=== PATIENT | female | born 1950 | race Caucasian/White ===

== ENCOUNTER 2016-08-23 23:01 | Inpatient (IN) | payer MEDICARE, MEDICAID ==
[~2016-08-23] VITALS: Ht 165.1 cm; Wt 120.2 kg
[~2016-08-23 23:01] MED LIST: CIPR500T PO; CRESTOR40 MG PO; HYDR-971 PO; LEVO150T PO; LISI10TA2 PO; METO25TA9 PO; METR500T PO; PROM25TA10 PO; SUCR1TAB35 PO; TICA90TA PO
[2016-08-24] VITALS (9 sets, daily range): BP systolic 103–164; BP diastolic 54–78
[2016-08-24] MEDS ORDERED: NITROGLYCERIN SUBLINGUAL 0.4 MG BOTTLE OF 25. SL PRN (03:45)
[2016-08-24] MEDS ORDERED: ESCITALOPRAM OX10 MG (03:54)
[2016-08-24] MEDS ORDERED: ASPI-482 PO (03:54)
[2016-08-24] MEDS ORDERED: ROSU40TA21 (03:54)
[2016-08-24] MEDS ORDERED: CLOP75TA (03:54)
[2016-08-24] MEDS ORDERED: TRAM50TA (03:54)
[2016-08-24] MEDS ORDERED: LEVO150T5 (03:54)
[2016-08-24] MEDS ORDERED: LISI1TAB7 (03:54)
[2016-08-24] MEDS ORDERED: METO25TA9 (03:54)
[2016-08-24] MEDS ORDERED: ONDANSETRON PF 4 MG/2 ML VIAL. IV PRN ×2 (04:00→11:15)
[2016-08-24] MEDS ORDERED: MORPHINE SULFATE 2 MG/ML DISP.SYRIN. IV PRN ×2 (04:00→11:15)
[2016-08-24] MEDS: IV NORMAL SALINE 1000ML BAG 1,000 ML IV SCH ×2 (04:12→17:20)
[2016-08-24 06:11] LABS: BASO # 0.1 x10^3/uL (0.0-0.2); BASO % 1 % (0-3); EOS % 2 % (0-3); HEMATOCRIT 36.6 % (36.0-47.0); HEMOGLOBIN 12.7 g/dL (12.0-15.5); LYMPH # 3.6 x10^3/uL (1.0-4.8); LYMPH % 28 % (24-48); MEAN CORPUSCULAR HEMOGLOBIN 33 pg (25-35); MEAN CORPUSCULAR HGB CONC 35 g/dL (31-37); MEAN CORPUSCULAR VOLUME 94 fL (79-100); MONO % 5 % (0-9); NEUT % 64 % (31-73); PLATELET COUNT 285 x10^3/uL (140-400); RED CELL DISTRIBUTION WIDTH 16.8 % (11.5-14.5); WHITE BLOOD COUNT 12.6 x10^3/uL (4.0-11.0)
[2016-08-24 06:13] LABS: CREATININE 1.2 mg/dL (0.6-1.0); GFR 45.2; POTASSIUM 3.9 mmol/L (3.5-5.1)
[2016-08-24 09:59] LABS: ALBUMIN 3.4 g/dL (3.4-5.0); ALBUMIN/GLOBULIN RATIO 1.1 (1.0-1.7); CALCIUM 7.5 mg/dL (8.5-10.1); CREATININE 1.3 mg/dL (0.6-1.0); GFR 41.2; POTASSIUM 3.7 mmol/L (3.5-5.1); TOTAL BILIRUBIN 0.3 mg/dL (0.2-1.0); TOTAL PROTEIN 6.6 g/dL (6.4-8.2)
[2016-08-24 10:00] LABS: CHOLESTEROL/HDL RATIO 6.9
--- NOTE | 2016-08-24 10:03 | PDOC2 ---
CARDIAC CONSULT DATE OF CONSULT Date of Consult DATE: 08/24/16 TIME: 09:58 REASON FOR CONSULT Reason for Consult: Chest pain REFERRING PHYSICIAN Referring Physician: Osman SOURCE Source: Chart review, Patient HISTORY OF PRESENT ILLNESS HISTORY OF PRESENT ILLNESS This is a pleasant 65 yo female admitted for complains of dizziness, and chest pain. She is followed by cardiology and last seen about a yr ago. She initially was at [facility] and was complaining of dizziness and chest pain. For further treatments she was then transferred to [facility] . Reports that she saw her PCP the other day to straighten out her refills. She has been taking her ASA daily and inhalers but has not been taking any of her routine medications for 2 months. Her BP was first noted as outpt to be very high and was given BP meds. Her zestoretic and metoprolol was restarted and has been taking it in the last few days and upon ED admission she was noted with low BP and HR. She described her chest pain as tightness associated with dizziness and with mild SOA but no nausea or vomiting. Her CP was consistent but got better and presently absent. Positive for mild abdominal and back discomfort and also right shoulder discomfort (not unusual for her). Denies any diarrhea, passing out, falls or any recent injury. No prior episodes of MVA or recent long distance travel. PAST MEDICAL HISTORY Cardiovascular: CAD, HTN, Hyperlipidemia Pulmonary: COPD CENTRAL NERVOUS SYSTEM: Other (No pertinent history) GI: Diverticulosis, GERD, Other (colitis) Heme/Onc: Cancer Hepatobiliary: Cholelithiasis Psych: No pertinent hx Musculoskeletal: Osteoarthritis Infectious disease: No pertinent hx ENT: No pertinent hx Renal/: No pertinent hx Endocrine: Hypothyroidism Dermatology: No pertinent hx PAST SURGICAL HISTORY Past Surgical History: , Hernia Repair, Hysterectomy (partial), Other (PCI/MADELIN, thyroidectomy) FAMILY HISTORY Family History: Coronary Artery Disease (ather), Diabetes (mother) SOCIAL HISTORY Smoke: No (>40 PK YR QUIT 6 MONTHS AGO) ALCOHOL: none Drugs: None Lives: with Family CURRENT MEDICATIONS CURRENT MEDICATIONS Current Medications Medications (Trade) Dose Ordered Sig/Carolann Route PRN Reason Start Time Stop Time Status Last Admin Dose Admin Ondansetron HCl (Zofran) 4 mg PRN Q6HRS PRN IV NAUSEA/VOMITING 08/24/16 04:00 08/24/16 04:12 Sodium Chloride 1,000 ml @ 75 mls/hr [id number] IV 08/24/16 04:00 08/24/16 04:12 ALLERGIES ALLERGIES: Coded Allergies: No Known Drug Allergies (Unverified , 11/06/14) ROS Review of System 14 point ROS evaluated with pertinent positives noted per HPI PHYSICAL EXAM General: Alert, Oriented X3, Cooperative, No acute distress HEENT: Atraumatic, Mucous membr. moist/pink Lungs: Other (basilar crackles) Heart: Regular rate, Normal S1, Normal S2, Other (2/6 systolic murmur to LLS border) Abdomen: Soft, No tenderness Extremities: No cyanosis, Other (1+ bilateral LE pitting edema) Skin: No breakdown, No significant lesion Neuro: Normal speech, Sensation intact Psych/Mental Status: Mental status NL, Mood NL MUSCULOSKELETAL: Osteoarthritic changes both hands VITALS VITALS Vital Signs Date Time Temp Pulse Resp B/P (MAP) Pulse Ox O2 Delivery O2 Flow Rate FiO2 08/24/16 08:00 Room Air 08/24/16 06:00 46 10 110/57 (74) 95 08/24/16 04:45 98.7 98.7 LABS Lab: Laboratory Tests Test 08/24/16 05:30 White Blood Count 12.6 x10^3/uL (4.0-11.0) Red Blood Count 3.90 x10^6/uL (3.50-5.40) Hemoglobin 12.7 g/dL (12.0-15.5) Hematocrit 36.6 % (36.0-47.0) Mean Corpuscular Volume 94 fL (79-100) Mean Corpuscular Hemoglobin 33 pg (25-35) Mean Corpuscular Hemoglobin Concent 35 g/dL (31-37) Red Cell Distribution Width 16.8 % (11.5-14.5) Platelet Count 285 x10^3/uL (140-400) Neutrophils (%) (Auto) 64 % (31-73) Lymphocytes (%) (Auto) 28 % (24-48) Monocytes (%) (Auto) 5 % (0-9) Eosinophils (%) (Auto) 2 % (0-3) Basophils (%) (Auto) 1 % (0-3) Neutrophils # (Auto) 8.0 x10^3uL (1.8-7.7) Lymphocytes # (Auto) 3.6 x10^3/uL (1.0-4.8) Monocytes # (Auto) 0.6 x10^3/uL (0.0-1.1) Eosinophils # (Auto) 0.2 x10^3/uL (0.0-0.7) Basophils # (Auto) 0.1 x10^3/uL (0.0-0.2) Sodium Level 141 mmol/L (136-145) Potassium Level 3.9 mmol/L (3.5-5.1) Chloride Level 108 mmol/L (98-107) Carbon Dioxide Level 19 mmol/L (21-32) Anion Gap 14 (6-14) Blood Urea Nitrogen 31 mg/dL (7-20) Creatinine 1.2 mg/dL (0.6-1.0) Estimated GFR (Cockcroft-Gault) 45.2 Glucose Level 87 mg/dL (70-99) Calcium Level 8.0 mg/dL (8.5-10.1) Troponin I Quantitative < 0.017 ng/mL (0.000-0.055) HEART CATH HEART CATH Conclusion 1. Unstable angina with significant coronary disease. 2. Normal left ventricular filling pressure. 3. Two vessel coronary artery disease (RCA, Lcx) 4. Successful PTCA and PCI of the ostial RCA with implantation of Resolute 2.75/ 12 MADELIN(post-dilated proximally to a 3.1 mm vessel) 5. Negative FFR of the Lcx stenosis 0.90 (less than 0.80 considered significant) Recommendations Smoking Cessation Cardiac Rehabilitation Referral Aggressive Medical Therapy ASA 81mg daily indefinitely Ticagrelor 90mg bid for at least 30 days, then may transition to Plavix for 1 full year. Routine skin check in two weeks in clinic. Follow up in clinic in 4 weeks. DATE: 11/08/14 7085 ASSESSMENT/PLAN ASSESSMENT/PLAN 1. Presyncope: multifactorial with inadequate hydration, bradycardia, hypothyroidism and hypotension 2. Hypotension/SB with recent start of metoprolol and zestoretic with underlying uncontrolled hypothyroidism. BP now better. 3. Chest pain: Troponin series normal. Could be associated to above. Doubt ACS. EKG SB 40s with RBBB (not new). Pt also with cholelithiasis. 4. Elevated DDIMER: >19. Hx of CA. V/Q scan pending 5. CAD: 10/2014 PCI/MADELIN to RCA. 6. HTN 7. HLP: not on goal 8. UTI 9. BRENT: prerenal 10. Noncompliance: off her meds except for inhalers and ASA for 2 months Recommendations 1. Hold any BB/ACEi for now. IVF. Hydralazine IV PRN for refractory HTN 2. Thyroid replacement per PCP 3. If V/Q scan is inconclusive then will plan for MPI on Saturday. 4. TTE. 5. Discussed treatment adherence and lifestyle modifications 6. Continue with ASA/plavix. Restart statin. Problems: JUANCHO HILLS DOOR FITTER Aug 24, 2016 10:03
[2016-08-24] MEDS ORDERED: traMADol 50 MG TABLET PO PRN (11:15)
[2016-08-24] MEDS ORDERED: hydrALAZINE 20 MG/ML VIAL. IVP PRN (11:15)
[2016-08-24] MEDS ORDERED: ACETAMINOPHEN 325 MG TABLET. PO PRN (11:15)
[2016-08-24] MEDS ORDERED: DOCUSATE SODIUM 100 MG CAPSULE. PO PRN (11:15)
--- NOTE | 2016-08-24 13:46 | RAD ---
Ventilation/perfusion lung scan, 08/24/2016: History: Elevated d-dimer, chest pain, syncope The ventilation study was performed utilizing 16 mCi of xenon-133. Activity in the lungs is minimally heterogeneous. There is mild patchy retention in the lungs on the washout phase. Perfusion imaging was performed utilizing 5.5 mCi of technetium 99m MAA. A similar pattern of activity is present in the lungs. No segmental or unmatched perfusion defects are seen to suggest pulmonary emboli. IMPRESSION: There are no VQ findings to suggest pulmonary emboli.
--- NOTE | 2016-08-24 13:49 | PDOC1 ---
History and Physical Date of Admission Date of Admission 08/24/16 Identification/Chief Complaint Chief Complaint dizzy, htn Problems: Source Source: Chart review, Patient History of Present Illness History of Present Illness 65yo F, h/o CAD was transferred from [facility] for chest pain but pt denies. Pt said she has been off meds for 2 months wo prescription. She eventually saw her PCP yesterday in the office, was found high BP. She felt dizzy with lightheaded, almost faint, denies chest pain, sob, cough, fever, chills, Did had nausea, no vomiting. Denies dysuria, frequency or urgency. She went to [facility],was found BP >200, Cr 1.8, high d dimer, VQ scan ordered overnight. not taking metoprolol for 2 months, but sinus bradycardia at HR 50s. BP lower side here. Past Medical History Cardiovascular: CAD, HTN, Hyperlipidemia Pulmonary: COPD CENTRAL NERVOUS SYSTEM: Other (No pertinent history) GI: Diverticulosis, GERD, Other (colitis) Heme/Onc: Cancer Hepatobiliary: Cholelithiasis Psych: No pertinent hx Infectious disease: No pertinent hx ENT: No pertinent hx Renal/: No pertinent hx Endocrine: Hypothyroidism Dermatology: No pertinent hx Past Surgical History Past Surgical History: , Hernia Repair, Hysterectomy (partial), Other (PCI/MADELIN, thyroidectomy) Family History Family History: Coronary Artery Disease (ather), Diabetes (mother) Social History Smoke: Quit (>40 PK YR QUIT 6 MONTHS AGO) ALCOHOL: none Drugs: None Current Medications Current Medications Current Medications Medications (Trade) Dose Ordered Sig/Carolann Start Time Stop Time Status Last Admin Dose Admin Acetaminophen (Tylenol) 650 mg PRN Q6HRS PRN 08/24/16 11:15 Aspirin (Ecotrin) 81 mg DAILY 08/24/16 11:30 Atorvastatin Calcium (Lipitor) 40 mg QHS 08/24/16 21:00 Ceftriaxone Sodium 1 gm/ Sodium Chloride 50 ml @ 100 mls/hr Q24H 08/24/16 21:00 08/24/16 21:00 DC Clopidogrel Bisulfate (Plavix) 75 mg DAILY 08/24/16 12:00 Docusate Sodium (Colace) 100 mg PRN DAILY PRN 08/24/16 11:15 Escitalopram Oxalate (Lexapro) 10 mg DAILY 08/24/16 12:00 Heparin Sodium (Porcine) (Heparin Sq) 5,000 unit Q8HRS 08/24/16 14:00 Hydralazine HCl (Apresoline) 10 mg PRN Q4HRS PRN 08/24/16 11:15 Levothyroxine Sodium (Synthroid) 150 mcg DAILY07 08/24/16 12:00 Lisinopril (Prinivil) 20 mg DAILY 08/25/16 09:00 08/25/16 09:00 DC Morphine Sulfate 2 mg PRN Q2HR PRN 08/24/16 11:15 Nitroglycerin (Nitrostat) 0.4 mg PRN Q5MIN PRN 08/24/16 03:45 Ondansetron HCl (Zofran) 4 mg PRN Q6HRS PRN 08/24/16 11:15 Sodium Chloride 1,000 ml @ 75 mls/hr [id number] 08/24/16 04:00 08/24/16 04:12 75 MLS/HR Tramadol HCl (Ultram) 50 mg PRN Q6HRS PRN 08/24/16 11:15 Allergies Allergies Allergies Coded Allergies Type Severity Reaction Last Updated Verified No Known Drug Allergies 11/06/14 No ROS Review of System CONSTITUTIONAL: No fever or chills EYES: No recent changes SKIN: No rash or itching CARDIOVASCULAR: No chest pain, syncope, palpitations, or edema RESPIRATORY: No SOB or cough GASTROINTESTINAL: No nausea, vomiting or abdominal pain NEUROLOGICAL: No headaches or weakness ENDOCRINE: No cold or heat intolerance GENITOURINARY: No urgency or frequency of urination MUSCULOSKELETAL: No back pain or joint pain LYMPHATICS: No enlarged lymph nodes PSYCHIATRIC: No anxiety or depression Physical Exam Physical Exam GEN.: No apparent distress. Alert and oriented. looks weak HEENT: Head is normocephalic, atraumatic NECK: Supple. LUNGS: Clear to auscultation. HEART: RRR, S1, S2 present. Peripheral pulses intact ABDOMEN: Soft, nontender. Positive bowel sounds. EXTREMITIES: Without any cyanosis. NEUROLOGIC: Normal speech, normal tone PSYCHIATRIC: Normal affect, normal mood. SKIN: No ulcerations Vitals Vitals Vital Signs Date Time Temp Pulse Resp B/P (MAP) Pulse Ox O2 Delivery O2 Flow Rate FiO2 08/24/16 08:00 Room Air 08/24/16 06:00 46 10 110/57 (74) 95 7/14/17 04:45 98.7 98.7 Labs Labs Laboratory Tests Test 08/24/16 05:30 08/24/16 10:15 White Blood Count 12.6 x10^3/uL (4.0-11.0) Red Blood Count 3.90 x10^6/uL (3.50-5.40) Hemoglobin 12.7 g/dL (12.0-15.5) Hematocrit 36.6 % (36.0-47.0) Mean Corpuscular Volume 94 fL (79-100) Mean Corpuscular Hemoglobin 33 pg (25-35) Mean Corpuscular Hemoglobin Concent 35 g/dL (31-37) Red Cell Distribution Width 16.8 % (11.5-14.5) Platelet Count 285 x10^3/uL (140-400) Neutrophils (%) (Auto) 64 % (31-73) Lymphocytes (%) (Auto) 28 % (24-48) Monocytes (%) (Auto) 5 % (0-9) Eosinophils (%) (Auto) 2 % (0-3) Basophils (%) (Auto) 1 % (0-3) Neutrophils # (Auto) 8.0 x10^3uL (1.8-7.7) Lymphocytes # (Auto) 3.6 x10^3/uL (1.0-4.8) Monocytes # (Auto) 0.6 x10^3/uL (0.0-1.1) Eosinophils # (Auto) 0.2 x10^3/uL (0.0-0.7) Basophils # (Auto) 0.1 x10^3/uL (0.0-0.2) Sodium Level 141 mmol/L (136-145) Potassium Level 3.7 mmol/L (3.5-5.1) Chloride Level 109 mmol/L (98-107) Carbon Dioxide Level 19 mmol/L (21-32) Anion Gap 13 (6-14) Blood Urea Nitrogen 32 mg/dL (7-20) Creatinine 1.3 mg/dL (0.6-1.0) Estimated GFR (Cockcroft-Gault) 41.2 BUN/Creatinine Ratio 25 (6-20) Glucose Level 89 mg/dL (70-99) Calcium Level 7.5 mg/dL (8.5-10.1) Magnesium Level 2.0 mg/dL (1.8-2.4) Total Bilirubin 0.3 mg/dL (0.2-1.0) Aspartate Amino Transf (AST/SGOT) 84 U/L (15-37) Alanine Aminotransferase (ALT/SGPT) 64 U/L (14-59) Alkaline Phosphatase 57 U/L (46-116) Troponin I Quantitative < 0.017 ng/mL (0.000-0.055) < 0.017 ng/mL (0.000-0.055) Total Protein 6.6 g/dL (6.4-8.2) Albumin 3.4 g/dL (3.4-5.0) Albumin/Globulin Ratio 1.1 (1.0-1.7) Triglycerides Level 126 mg/dL (0-150) Cholesterol Level 257 mg/dL (0-200) LDL Cholesterol, Calculated 195 mg/dL (0-100) VLDL Cholesterol, Calculated 25 mg/dL (0-40) Non-HDL Cholesterol Calculated 220 mg/dL (0-129) HDL Cholesterol 37 mg/dL (40-60) Cholesterol/HDL Ratio 6.9 Thyroid Stimulating Hormone (TSH) 127.896 uIU/mL (0.358-3.74) Laboratory Tests Test 08/24/16 05:30 08/24/16 10:15 White Blood Count 12.6 x10^3/uL (4.0-11.0) Red Blood Count 3.90 x10^6/uL (3.50-5.40) Hemoglobin 12.7 g/dL (12.0-15.5) Hematocrit 36.6 % (36.0-47.0) Mean Corpuscular Volume 94 fL (79-100) Mean Corpuscular Hemoglobin 33 pg (25-35) Mean Corpuscular Hemoglobin Concent 35 g/dL (31-37) Red Cell Distribution Width 16.8 % (11.5-14.5) Platelet Count 285 x10^3/uL (140-400) Neutrophils (%) (Auto) 64 % (31-73) Lymphocytes (%) (Auto) 28 % (24-48) Monocytes (%) (Auto) 5 % (0-9) Eosinophils (%) (Auto) 2 % (0-3) Basophils (%) (Auto) 1 % (0-3) Neutrophils # (Auto) 8.0 x10^3uL (1.8-7.7) Lymphocytes # (Auto) 3.6 x10^3/uL (1.0-4.8) Monocytes # (Auto) 0.6 x10^3/uL (0.0-1.1) Eosinophils # (Auto) 0.2 x10^3/uL (0.0-0.7) Basophils # (Auto) 0.1 x10^3/uL (0.0-0.2) Sodium Level 141 mmol/L (136-145) Potassium Level 3.7 mmol/L (3.5-5.1) Chloride Level 109 mmol/L (98-107) Carbon Dioxide Level 19 mmol/L (21-32) Anion Gap 13 (6-14) Blood Urea Nitrogen 32 mg/dL (7-20) Creatinine 1.3 mg/dL (0.6-1.0) Estimated GFR (Cockcroft-Gault) 41.2 BUN/Creatinine Ratio 25 (6-20) Glucose Level 89 mg/dL (70-99) Calcium Level 7.5 mg/dL (8.5-10.1) Magnesium Level 2.0 mg/dL (1.8-2.4) Total Bilirubin 0.3 mg/dL (0.2-1.0) Aspartate Amino Transf (AST/SGOT) 84 U/L (15-37) Alanine Aminotransferase (ALT/SGPT) 64 U/L (14-59) Alkaline Phosphatase 57 U/L (46-116) Troponin I Quantitative < 0.017 ng/mL (0.000-0.055) < 0.017 ng/mL (0.000-0.055) Total Protein 6.6 g/dL (6.4-8.2) Albumin 3.4 g/dL (3.4-5.0) Albumin/Globulin Ratio 1.1 (1.0-1.7) Triglycerides Level 126 mg/dL (0-150) Cholesterol Level 257 mg/dL (0-200) LDL Cholesterol, Calculated 195 mg/dL (0-100) VLDL Cholesterol, Calculated 25 mg/dL (0-40) Non-HDL Cholesterol Calculated 220 mg/dL (0-129) HDL Cholesterol 37 mg/dL (40-60) Cholesterol/HDL Ratio 6.9 Thyroid Stimulating Hormone (TSH) 127.896 uIU/mL (0.358-3.74) VTE Prophylaxis Ordered VTE Prophylaxis Devices: Yes VTE Pharmacological Prophylaxi: Yes Assessment/Plan Assessment/Plan presyncope, need to rule out orthostatic hypotention, also had HTN urgency, clay cardia noncompliance elevated ddimer wo chest pain sinus bradycardia HTN urgency, now BP lower side h/o CAD with PCI to RCA 2014 htn hld BRENT with ckd 3, vasomotor, dehydation. uncontrolled hypothyroidism leukocytosis, reactive likely COPD h/o Cervical Ca, thyroid Ca plan fu with card, tte VQ scan pending hold metoprolol, hctz. acei consider start from tmr check orthostatic hypotension ivf for today ptot dvt ppx cont synthroid no need abx MONO ZEPEDA MD Aug 24, 2016 13:49
[2016-08-24] MEDS: ESCITALOPRAM 10 MG TABLET. PO SCH (14:15)
[2016-08-24] MEDS: ASPIRIN ENTERIC COATED 81 MG TABLET.DR. PO SCH (14:16)
[2016-08-24] MEDS: CLOPIDOGREL BISULFATE 75 MG TABLET PO SCH (14:16)
[2016-08-24] MEDS: LEVOTHYROXINE 150 MCG TABLET PO SCH (14:16)
[2016-08-24] MEDS: HEPARIN PF for SUB-Q USE 5,000 UNIT/0.5 ML VIAL. SQ SCH ×2 (14:23→21:45)
--- NOTE | 2016-08-24 15:27 | EKG ---
[facility] [address] [place] [address] Test Date: 2016-08-24 Test Time: 15:25:30 Pat Name: EVANGELIST COLIN Department: Room: 114 1 Gender: F Production Planner Scheduler: VERONIKA : 1950 Requested By: JUANCHO HILLS Order Number: [id number] Reading MD: Measurements Intervals [place] Rate: 48 P: 0 RI: 174 QRS: -35 QRSD: 144 T: 129 QT: 506 QTc: 452 Interpretive Statements SINUS BRADYCARDIA ABNORMAL LEFT AXIS DEVIATION LEFT ANTERIOR FASCICULAR BLOCK RIGHT BUNDLE BRANCH BLOCK BIFASCICULAR BLOCK QRS(T) CONTOUR ABNORMALITY CONSIDER ANTEROSEPTAL MYOCARDIAL DAMAGE ABNORMAL ECG RI6.01 Compared to ECG 02/08/2016 16:21:59 Sinus rhythm no longer present Bifascicular block still present
--- NOTE | 2016-08-24 17:45 | CARD ---
APPROVED REPORT EXAM: Two-dimensional and M-mode echocardiogram with Doppler and color Doppler. Other Information Quality : GoodHR: 58bpm Rhythm : Bradycardia INDICATION Cardiac Disease: CAD Chest Pain 2D DIMENSIONS RVDd3.5 (2.9-3.5cm)Left Atrium(2D)4.1 (1.6-4.0cm) IVSd0.9 (0.7-1.1cm)Aortic Root(2D)3.0 (2.0-3.7cm) LVDd5.6 (3.9-5.9cm)LVOT Diameter2.2 (1.8-2.4cm) PWd1.0 (0.7-1.1cm)LVDs3.5 (2.5-4.0cm) FS (%) 36.9 %SV102.8 ml LVEF(%)66.2 (>50%) Aortic Valve AoV Peak Attila.131.0cm/sAoV VTI28.2cm AO Peak GR.6.9mmHgLVOT Peak Attila.101.0cm/s AO Mean GR.3mmHgAVA (VMAX)2.90cm2 Mitral Valve MV E Ljgcrpmz17.4cm/sMV E Peak Gr.3mmHg MV DECEL [id number] A Atsqiuew77.3cm/s MV E Mean Gr.1mmHgE/A Ratio0.8 MV A [id number] Pulmonary Valve PV Peak Mcsinvsx229.7cm/s Pulmonary Vein S1 Kmkogyxq90.1cm/sD2 Djxpggab86.5cm/s PVa [id number] LEFT VENTRICLE The left ventricle is normal size. There is borderline concentric left ventricular hypertrophy. The l eft ventricular systolic function is normal and the ejection fraction is within normal range. The Eje ction Fraction is 60-65%. There is normal LV segmental wall motion. Transmitral Doppler flow pattern is Grade I-abnormal relaxation pattern. RIGHT VENTRICLE The right ventricle is normal size. There is normal right ventricular wall thickness. The right ventr icular systolic function is normal. ATRIA The left atrium is mildly dilated. The right atrium size is normal. The interatrial septum is intact with no evidence for an atrial septal defect or patent foramen ovale as noted on 2-D or Doppler imagi ng. AORTIC VALVE The aortic valve is mildly sclerotic. The aortic valve is trileaflet. Doppler and Color Flow revealed no significant aortic regurgitation. There is no significant aortic valvular stenosis. MITRAL VALVE Mitral annular calcification is mild. The mitral valve leaflets are thickened. There is no evidence o f mitral valve prolapse. There is no mitral valve stenosis. Doppler and Color Flow revealed no mitral valve regurgitation noted. TRICUSPID VALVE Doppler and Color Flow revealed trace tricuspid valve regurgitation. PULMONIC VALVE The pulmonary valve is not well visualized but appears to opens well. Doppler and Color Flow revealed pulmonic valvular regurgitation. There is no pulmonic valvular stenosis by spectral Doppler. GREAT VESSELS The aortic root is normal in size. The ascending aorta is normal in size. The pulmonary artery is nor mal. The IVC is normal in size and collapses >50% with inspiration. PERICARDIAL EFFUSION There is no evidence of significant pericardial effusion. Critical Notification Critical Value: No <Conclusion> The left ventricle is normal size. The left ventricular systolic function is normal and the ejection fraction is within normal range. The Ejection Fraction is 60-65%. There is borderline concentric left ventricular hypertrophy. There is no significant aortic valvular stenosis. Doppler and Color Flow revealed no significant aortic regurgitation. Doppler and Color Flow revealed no mitral valve regurgitation noted. Doppler and Color Flow revealed trace tricuspid valve regurgitation.
[2016-08-24] MEDS ORDERED: ATORVASTATIN CALCIUM 40 MG TABLET. PO SCH (21:00)
[2016-08-25] VITALS: BP 133/53
[2016-08-25 04:00] VITALS: BP 127/64
--- NOTE | 2016-08-25 04:52 | ACF ---
Admit Criteria Forms Admit Criteria Forms Admit Criteria Forms CARDIOLOGY GRG Clinical Indications for Admission to Inpatient Care ( Place 'X' for any and all applicable criteria): Hospital admission is needed for appropriate care of the patient because of ANY ONE of the following (1): [ ] I. Hemodynamic instability as indicated by ALL of the following (1)(2)(3) (4)(5) [ ]a) Vital signs or other findings not as expected for chronic patient condition or baseline [ ]b) Instability indicated by ANY ONE of the following: [ ]i) Hypotension [ ]ii) Symptomatic Tachycardia unresponsive to treatment ( e.g., analgesia, fluids, sedation as indicated) [ ]iii) Inadequate perfusion indicated by ANY ONE of the following: [ ] 1) Lactic acidosis (> 2 mmol/L) [ ] 2) New abnormal capillary refill (> 3 seconds) [ ] 3) Reduced urine output [ ] 4) New altered mental status [ ]iv) Orthostatic vital sign changes unresponsive to treatment (e.g., fluids) [ ]v) IV inotropic or vasopressor medication required to maintain adequate blood pressure or perfusion [ ] II. Severe heart failure as indicated by ANY ONE of the following(17)(18) [ ]a) Respiratory distress [ ]b) Hypotension [ ]c) Anasarca (refractory to outpatient therapy) [ ]d) Cardiac arrhythmias of immediate concern [ ]e) Myocardial ischemia [ ] III. Cardiac arrhythmias or findings of immediate concern indicated by ANY ONE of the following (19)(20): [ ] a) Heart rhythms that are inherently dangerous or unstable indicated by ANY ONE of the following (21)(22)(23): [ ] i) Resuscitated ventricular fibrillation or cardiac arrest [ ] ii) Ventricular escape rhythm [ ] iii) Sustained ventricular tachycardia (30 seconds or more of ventricular rhythm at greater than 100 beats per minute) [ ] iv) Nonsustained ventricular tachycardia and ANY ONE of the following: [ ] 1) Suspected cardiac ischemia as cause or consequence of ventricular tachycardia [ ] 2) In setting of acute myocarditis [ ] b) Unstable cardiac conduction defects indicated by ANY ONE of the following(23)(24)(25) [ ] i) Type II second-degree atrioventricular block [ ]ii) Third-degree atrioventricular block [ ]iii) New-onset left bundle branch block with suspected myocardial ischemia [ ]c) Any heart rhythm and ANY ONE of the following (21)(22)(26)(27) (28) [ ] i) Continuous long-term ECG monitoring needed (e.g., initiation of drug requiring monitoring for more than 24 hours) [ ] ii) Patient has automatic implanted cardioverter defibrillator that is repeatedly firing, malfunctioning, or in need of immediate adjustment of settings beyond the scope of ambulatory or observation care [ ]d) Heart rhythms of concern due to ANY ONE of the following: [ ] i) Hypotension [ ] ii) Respiratory distress [ ] iii) Association with other significant symptoms (e.g., bradycardia with syncope or ongoing dizziness, supraventricular tachycardia with chest pain (14)(15)(17) [ ] IV. Monitoring for cardiac contusion beyond the scope of observation care needed [A](30)(31)(32) [ ] V. Surgical or device complication (e.g., valve replacement complication , pacemaker dysfunction) (35)(41)(44)(45)(46) [ ] . Inpatient palliative care needed. [B](49) Also use Inpatient Palliative Care Criteria [ ] VII. Nonbacterial thrombotic (marantic) endocarditis (36)(43)(47)(48) [X] VIII. Cardiology condition, symptom, or finding for which emergency and observation care has failed or are not considered appropriate. [ ] IX. Acute valvular disease requiring inpatient as indicated by ANY ONE of the following (41) [ ]a) Acute valvular regurgitation (42) [ ]b) Noninfectious valvulitis (43) [ ]c) Obstructive valve thrombosis [ ]d) Paravalvular leak [ ]e) Other significant valvular disorder remaining after emergency or observation level of care (as appropriate) [ ]X. Pericardial disease requiring inpatient treatment as indicated by ANY ONE of the following (33)(34)(35)(36)(37) [ ]a) Suspected tamponade (38)(39)(40) [ ]b) Hemopericardium [ ]c) Other significant pericardial disorder remaining after emergency or observation level of care (as appropriate) [ ] XI. Cardiac ischemia beyond scope of emergency and observation care. [ ] XII. Hypertension requiring inpatient treatment as indicated by ANY ONE of the following (6)(7)(8) [ ]a) SBP greater than 220 mm Hg or DBP greater than 120 mmHg despite treatment [ ]b) SBP greater than 140 mm Hg or DBP greater than 100 mm Hg with evidence of acute end organ damage as indicated by ANY ONE of the following [ ] i) Encephalopathy [ ] ii) Acute renal failure as indicated by new onset of ANY ONE of the following (9)(10)(11)(12)(13) [ ]1) 3-fold rise in serum creatinine from baseline [ ]2) Serum creatinine greater than 4 mg/dL ( 354 micromoles/L) with acute rise greater than 0.5 mg/dL (44.2 micromoles/L) [ ]3) Reduction of more than 75% in estimated glomerular filtration rate from baseline [ ]4) Estimated glomerular filtration rate less than 35 mL/min/1.73m2 (0.59 mL/sec/1.73m2) in child up to 18 years of age [ ]5) Cessation of urine output indicated by ALL of the following [ ]A. Adequate volume status [ ]B. Inadequate urine output as indicated by ANY ONE of the following [ ]a. Urine output less than 0.3 mL/kg/hr for 24 hours [ ]b. Anuria (urine output less than 0.1 mL/kg/hr) for 12 hours [ ] iii) Aortic dissection [ ] iv) Myocardial Ischemia [ ] v) Left ventricular heart failure [ ]vi) Retinal Hemorrhage [ ]vii) Other significant finding [ ]c) Hypertension in child requiring inpatient treatment as indicated by ALL of the following(14)(15)(16) [ ] i) Outpatient treatment not effective, not available, or not appropriate [ ]ii) SBP or DBP greater than 95th percentile for age [ ]iii) Evidence of acute end organ damage as indicated by ANY ONE of the following [ ]1) Altered mental status [ ]2) Acute renal failure as indicated by new onset of ANY ONE of the following(9)(10)(11)(12)(13) [ ]A. 3-fold rise in serum creatinine from baseline [ ]B. Serum creatinine greater than 4 mg/dL (354 micromoles/L) with acute rise greater than 0.5 mg/dL (44.2 micromoles/L) [ ]C. Reduction of more than 75% in estimated glomerular filtration rate from baseline [ ]D. Estimated glomerular filtration rate less than 35 mL/min/1.73m2 (0.59 mL/sec/1.73m2) in child up to 18 years of age [ ]E. Cessation of urine output indicated by ALL of the following [ ]a. Adequate volume status [ ]b. Inadequate urine output as indicated by ANY ONE of the following [ ]i) Urine output less than 0.3 mL/kg/hr for 24 hours [ ]ii) Anuria ( urine output less than 0.1 mL/kg/hr) for 12 hours [ ]3) Severe headache [ ]4) Visual disturbance [ ]5) Retinal hemorrhage [ ]6) Other significant finding [ ]XIII. Complications of transplanted heart indicated by ANY ONE of the following(61): [ ]a) Acute graft rejection requiring inpatient management (eg, intravenous immunosuppression)(62)(63) [ ]b) Acute graft heart failure indicated by ANY ONE of the following(64): [ ]i) Hemodynamic instability [ ]ii) Cardiac arrhythmias of immediate concern [ ]iii) Pulmonary edema that is very severe (eg, mechanical ventilation needed, imminent or likely, need for 100% oxygen to keep oxygen saturation above 90%) [ ]iv) Pulmonary edema that is persistent as indicated by ALL of the following: [ ]1) New need for oxygen therapy to keep oxygen saturation above 90% (or increased FiO2 need from baseline) [ ]2) Has not improved sufficiently with emergency department or observation care IV diuretics or other heart failure treatments[E] [ ]v) Altered mental status that is severe or persistent [ ]vi) Increased creatinine (new on laboratory test) with reduction of more than 50% in estimated glomerular filtration rate from baseline [ ]vii) Progressively (ongoing) rising creatinine (known from past laboratory test) with reduction of more than 25% in estimated glomerular filtration rate from baseline [ ]viii) Acute renal failure [ ]ix) Acute peripheral ischemia (eg, examination shows pulseless, cool, mottled, or cyanotic extremity) [ ]x) Pulmonary artery catheter monitoring needed [ ]xi) Other sign or symptom of heart failure requiring inpatient treatment (ie, too severe or not responsive to outpatient and observation care treatment) [ ]c) Infection requiring inpatient management (eg, Hemodynamic instability, need for intravenous antimicrobial treatment)(66)(67)(68)(69)(70) [ ]d) Cardiac allograft vasculopathy requiring inpatient management ( eg evidence of cardiac ischemia)(71) [ ]e) Other complication of transplanted heart (eg, stroke, severe pulmonary hypertension, severe valvular dysfunction) requiring inpatient management(72) The original [email or web address] content created by [facility] has been revised. The portions of the content which have been revised are identified through the use of italic text or in bold, and [facility] has neither reviewed nor approved the modified material. All other unmodified content is copyright [email or web address]. Please see references footnoted in the original [email or web address] edition 2016 EILEEN YANG Aug 25, 2016 04:52
[2016-08-25 05:11] LABS: BASO # 0.1 x10^3/uL (0.0-0.2); BASO % 1 % (0-3); EOS % 3 % (0-3); HEMATOCRIT 35.7 % (36.0-47.0); HEMOGLOBIN 11.9 g/dL (12.0-15.5); LYMPH # 3.4 x10^3/uL (1.0-4.8); LYMPH % 31 % (24-48); MEAN CORPUSCULAR HEMOGLOBIN 32 pg (25-35); MEAN CORPUSCULAR HGB CONC 34 g/dL (31-37); MEAN CORPUSCULAR VOLUME 96 fL (79-100); MONO % 6 % (0-9); NEUT % 59 % (31-73); PLATELET COUNT 250 x10^3/uL (140-400); RED BLOOD COUNT 3.73 x10^6/uL (3.50-5.40); RED CELL DISTRIBUTION WIDTH 16.3 % (11.5-14.5); WHITE BLOOD COUNT 10.9 x10^3/uL (4.0-11.0)
[2016-08-25 05:28] LABS: CALCIUM 8.4 mg/dL (8.5-10.1); CREATININE 0.9 mg/dL (0.6-1.0); POTASSIUM 3.7 mmol/L (3.5-5.1)
[2016-08-25] MEDS: HEPARIN PF for SUB-Q USE 5,000 UNIT/0.5 ML VIAL. SQ SCH (06:14)
[2016-08-25] MEDS: LEVOTHYROXINE 150 MCG TABLET PO SCH (07:27)
[2016-08-25 08:00] VITALS: BP 120/66
[2016-08-25] MEDS: ESCITALOPRAM 10 MG TABLET. PO SCH (08:49)
[2016-08-25] MEDS: ASPIRIN ENTERIC COATED 81 MG TABLET.DR. PO SCH (08:49)
[2016-08-25] MEDS: CLOPIDOGREL BISULFATE 75 MG TABLET PO SCH (08:49)
[2016-08-25] MEDS ORDERED: LISINOPRIL 20 MG TABLET PO SCH (09:00)
[2016-08-25] MEDS ORDERED: LISI10TA2 PO (09:44)
--- NOTE | 2016-08-25 10:07 | PDOC ---
CARDIO Progress Notes Date and Time Date of Service 08/25/2016 Time of Evaluation 0930 Subjective Subjective: No Chest Pain, No shortness of breath, No Palpitations, No Dizziness Vitals Vitals Vital Signs Date Time Temp Pulse Resp B/P (MAP) Pulse Ox O2 Delivery O2 Flow Rate FiO2 08/25/16 04:00 98.4 50 11 127/64 (85) 96 Room Air 98.4 Weight Weight [ ] Input and Output Intake and Output Intake and Output 08/25/16 07:00 Intake Total 1539 ml Balance 1539 ml Intake Oral 850 ml IV Total 689 ml # Voids 6 Laboratory Labs Laboratory Tests Test 08/24/16 10:15 08/25/16 02:55 Troponin I Quantitative < 0.017 ng/mL (0.000-0.055) Thyroxine (T4) 1.9 ug/dL (4.5-12.0) White Blood Count 10.9 x10^3/uL (4.0-11.0) Red Blood Count 3.73 x10^6/uL (3.50-5.40) Hemoglobin 11.9 g/dL (12.0-15.5) Hematocrit 35.7 % (36.0-47.0) Mean Corpuscular Volume 96 fL (79-100) Mean Corpuscular Hemoglobin 32 pg (25-35) Mean Corpuscular Hemoglobin Concent 34 g/dL (31-37) Red Cell Distribution Width 16.3 % (11.5-14.5) Platelet Count 250 x10^3/uL (140-400) Neutrophils (%) (Auto) 59 % (31-73) Lymphocytes (%) (Auto) 31 % (24-48) Monocytes (%) (Auto) 6 % (0-9) Eosinophils (%) (Auto) 3 % (0-3) Basophils (%) (Auto) 1 % (0-3) Neutrophils # (Auto) 6.4 x10^3uL (1.8-7.7) Lymphocytes # (Auto) 3.4 x10^3/uL (1.0-4.8) Monocytes # (Auto) 0.7 x10^3/uL (0.0-1.1) Eosinophils # (Auto) 0.3 x10^3/uL (0.0-0.7) Basophils # (Auto) 0.1 x10^3/uL (0.0-0.2) Sodium Level 142 mmol/L (136-145) Potassium Level 3.7 mmol/L (3.5-5.1) Chloride Level 109 mmol/L (98-107) Carbon Dioxide Level 21 mmol/L (21-32) Anion Gap 12 (6-14) Blood Urea Nitrogen 21 mg/dL (7-20) Creatinine 0.9 mg/dL (0.6-1.0) Estimated GFR (Cockcroft-Gault) 63.0 Glucose Level 92 mg/dL (70-99) Calcium Level 8.4 mg/dL (8.5-10.1) Physical Exam HEENT: Neck Supple W Full Motion Chest: Symmetric LUNGS: Clear to Auscultation Heart: S1S2, RRR (SR/SB) Abdomen: Soft N/T Extremities: No Calf Tenderness Neurology: alert, oriented, follow commands Assessment Assessment 1. Presyncope: no further recurrence 2. Hypotension/SB: BP stable. Intermittent clay at 40-50s. 3. Chest pain: troponin series normal, No acute changes to EKG. No further recurrence 4. Elevated DDIMER: >19. Hx of CA. V/Q neg for PE 5. CAD: 10/2014 PCI/MADELIN to RCA. TTE with normal EF and LV systolic function 6. HTN: controlled 7. HLP: not on goal 8. UTI 9. BRENT: prerenal, much better after IV hydration 10. Noncompliance: failed to take meds for 2 months 11. Hypothyroidism Recommendations 1. Continue to hold BB, continue with lisinopril 2. Thyroid replacement per PCP 3. May DC to home. Will schedule for outpt MPI next week. 4. Discussed treatment adherence and lifestyle modifications 5. Continue with ASA/plavix, statin JUANCHO H[employer]S [employer] T[employer]ER Aug 25, 2016 10:07
[2016-08-25] MEDS ORDERED: LISINOPRIL 10 MG TABLET PO SCH (10:30)
--- NOTE | 2016-08-25 13:48 | PDOC3 ---
Discharge Summary [facility] Date of Admission: Aug 24, 2016 Discharge Date: Aug 25, 2016 Admitting Diagnosis presyncope, NEG orthostatic hypotention, had HTN urgency, clay cardia noncompliance elevated ddimer wo chest pain sinus bradycardia HTN urgency, now BP lower side h/o CAD with PCI to RCA 2014 htn hld BRENT with ckd 3, vasomotor, dehydation. uncontrolled hypothyroidism leukocytosis, reactive likely COPD h/o Cervical Ca, thyroid Ca Problems: CONSULTS CARD Brief Hospital Course 65yo F, h/o CAD was transferred from [facility] for chest pain but pt denies. Pt said she has been off meds for 2 months wo prescription. She eventually saw her PCP yesterday in the office, was found high BP. She felt dizzy with lightheaded, almost faint, denies chest pain, sob, cough, fever, chills, Did had nausea, no vomiting. Denies dysuria, frequency or urgency. She went to [facility],was found BP >200, Cr 1.8, high d dimer, VQ scan ordered overnight. not taking metoprolol for 2 months, but sinus bradycardia at HR 50s. BP lower side here. BP stable with cont sinus bradycardia, metoprolol held. echo, vq scan all neg. neg orthostatic hypotention. dc home with lisinopril 10mg daily dc time 35min GEN.: No apparent distress. Alert and oriented. looks weak HEENT: Head is normocephalic, atraumatic NECK: Supple. LUNGS: Clear to auscultation. HEART: RRR, S1, S2 present. Peripheral pulses intact ABDOMEN: Soft, nontender. Positive bowel sounds. EXTREMITIES: Without any cyanosis. NEUROLOGIC: Normal speech, normal tone PSYCHIATRIC: Normal affect, normal mood. SKIN: No ulcerations Patient History: Family history: Cardiovascular disease (situation) 33 FATHER (father from [place] age 56) Problems: Disposition home CONDITION AT DISCHARGE: Improved Diet cardiac Scheduled Aspirin (Aspir 81), 81 MG PO DAILY, (Reported) Escitalopram Oxalate (Escitalopram Oxalate), 10 MG DAILY, (Reported) Lisinopril (Lisinopril), 10 MG PO DAILY Miscellaneous Medications Clopidogrel Bisulfate (Clopidogrel), 75 MG, (Reported) Levothyroxine Sodium (Levothyroxine Sodium), 150 MCG, (Reported) Rosuvastatin Calcium (Rosuvastatin Calcium), 40 MG, (Reported) Tramadol Hcl (Tramadol Hcl), 50 MG, (Reported) Discontinued Medications Levothyroxine Sodium (Synthroid), 1 TAB PO DAILY, (Reported) Lisinopril (Lisinopril), 1 TAB PO DAILY, (Reported) Lisinopril/Hydrochlorothiazide (Lisinopril-Hctz 20-25 Mg Tab), 20, (Reported) Metoprolol Succinate (Metoprolol Succinate ( Xl )), 25 MG, (Reported) Follow Up pcp in 2 weeks MONO ZEPEDA MD Aug 25, 2016 13:48
== END 2016-08-25 11:36 | disposition home or self-care (01) | DRG 683 ==
LOC: 6 SOUTH 08-24 02:59 → 1 WEST ICU 08-24 03:56
PROVIDERS: ADMIT Internal Medicine; ATTEND Internal Medicine
DX: N17.0 Acute kidney failure with tubular necrosis (principal); N39.0 Urinary tract infection, site not specified; R55 Syncope and collapse; I25.10 Atherosclerotic heart disease of native coronary artery without angina pectoris; I16.0 Hypertensive urgency; I12.9 Hypertensive chronic kidney disease with stage 1 through stage 4 chronic kidney disease, or unspecified chronic kidney disease; E78.5 Hyperlipidemia, unspecified; E03.9 Hypothyroidism, unspecified; K57.90 Diverticulosis of intestine, part unspecified, without perforation or abscess without bleeding; M19.90 Unspecified osteoarthritis, unspecified site; I95.9 Hypotension, unspecified; R07.89 Other chest pain; D72.829 Elevated white blood cell count, unspecified; I45.10 Unspecified right bundle-branch block; R00.1 Bradycardia, unspecified; J44.9 Chronic obstructive pulmonary disease, unspecified; K21.9 Gastro-esophageal reflux disease without esophagitis; N18.3 Chronic kidney disease, stage 3 (moderate); Z82.49 Family history of ischemic heart disease and other diseases of the circulatory system; Z83.3 Family history of diabetes mellitus; Z85.41 Personal history of malignant neoplasm of cervix uteri; Z85.850 Personal history of malignant neoplasm of thyroid; Z91.19 Patient's noncompliance with other medical treatment and regimen; Z95.5 Presence of coronary angioplasty implant and graft; Z90.710 Acquired absence of both cervix and uterus; Z79.82 Long term (current) use of aspirin; E86.0 Dehydration
CPT/HCPCS: 36415; 78582; 80048; 80053; 80061; 83735; 84436; 84443; 84484; 85027; 87641; 93005; 93306; 96374; 99406; A6539; A9540; A9558; J2405; J7030